=== PATIENT | female | born 1985 | race Asian ===

== ENCOUNTER 2019-08-15 08:53 | Day surgery (SDC) | payer BC ==
[2019-08-15] VITALS (16 sets, daily range): BP systolic 95–127; BP diastolic 65–77; PULSE 60–71; RESP 16–18; Ht 172.7 cm; Wt 62.0 kg
[~2019-08-15] VITALS: Ht 172.7 cm; Wt 62.0 kg
[2019-08-15] MEDS ORDERED: VANCOMYCIN 1 GM (PMX) 0 ML ONE (09:33)
[2019-08-15] MEDS ORDERED: MIDAZOLAM 1 MG/ML 2 ML INJ ONE (10:21)
[2019-08-15] MEDS ORDERED: FENTAnyl 50 MCG/ML VIAL ONE (10:21)
[2019-08-15] MEDS ORDERED: PROPOFOL 40 ML ONE (10:21)
[2019-08-15] MEDS ORDERED: CLINDAMYCIN 900 MG (PMX) 50 ML IVPB ONE ×2 (10:27→10:30)
[2019-08-15] MEDS ORDERED: FENTAnyl 50 MCG/ML VIAL IV PRN (10:30)
[2019-08-15] MEDS ORDERED: OXYCODONE/ACETAMINOPHEN (5/325) TAB PO PRN (10:30)
[2019-08-15] MEDS ORDERED: MEPERIDINE 25 MG INJ IV PRN (10:30)
[2019-08-15] MEDS ORDERED: KETOROLAC 30 MG INJ IV PRN (10:30)
[2019-08-15] MEDS ORDERED: HYDROmorphONE 1 MG/5 ML IV SYRINGE IV PRN (10:30)
[2019-08-15] MEDS ORDERED: ONDANSETRON 4 MG INJ IV PRN (10:30)
[2019-08-15] MEDS ORDERED: LIDOCAINE 1% (MPF) 30 ML INJ ONE (10:45)
[2019-08-15] MEDS ORDERED: LIDOCAINE 2% (SDV) 5 ML INJ ONE (11:10)
== END 2019-08-15 13:35 | disposition home or self-care (01) ==
LOC: SDS 08:53
PROVIDERS: ATTEND Surgery Surgical Oncology
DX: Z30.46 Encounter for surveillance of implantable subdermal contraceptive (principal)
CPT/HCPCS: 11976; 73060; 80053; 85025; 85610; 85730; J2250; J3010; Z7610; 88300; J3370